=== PATIENT | female | born 1960 | race Caucasian/White ===

== ENCOUNTER 2018-05-14 17:59 | Inpatient (IN) | payer OTHER ==
[~2018-05-14] VITALS: Ht 170.2 cm; Wt 91.6 kg
[2018-05-14] MEDS ORDERED: PRILOSEC 10MG C10 MG PO (18:10)
[2018-05-14 18:43] LABS: ABSOLUTE BASOPHILS 0.1 thou/uL (0.0-0.2); ABSOLUTE EOSINOPHILS 0.2 thou/uL (0.0-0.7); ABSOLUTE LYMPHOCYTES 2.2 thou/uL (0.8-5.3); ABSOLUTE MONOCYTES 0.9 thou/uL (0.0-1.2); ABSOLUTE NEUTROPHILS 5.6 thou/uL (1.6-8.1); BASOPHILS 0.7 %; EOSINOPHILS 2.4 %; HEMATOCRIT 40.4 % (37.0-47.0); HEMOGLOBIN 13.7 gm/dL (12.0-15.0); LYMPHOCYTES 24.4 %; MCH 31.6 pg (26.0-34.0); MCHC 33.9 g/dL (28.0-37.0); MCV 93.1 fL (80.0-100.0); MONOCYTES 9.8 %; MPV 7.9 fl. (7.2-11.1); NUCLEATED RBCS 0 /100WBC; PLATELET COUNT* 329 thou/uL (150-400); POLYS 62.7 %; RBC 4.34 mil/uL (4.20-5.00)
[2018-05-14 18:59] LABS: ANION GAP < 0 mmol/L (7-16); BUN 23 mg/dL (7-18); CALCIUM 9.1 mg/dL (8.5-10.1); CHLORIDE 97 mmol/L (98-107); CO2 30 mmol/L (21-32); GLUCOSE 108 mg/dL (70-99); POTASSIUM 3.5 mmol/L (3.5-5.1); SODIUM 121 mmol/L (136-145); TROPONIN-I LEVEL <0.06 ng/mL (<0.06)
[2018-05-14 19:00] LABS: ALBUMIN 3.6 g/dL (3.4-5.0); ALKALINE PHOSPHATASE 94 U/L (46-116); LIPASE 169 U/L (73-393); NT-PRO BRAIN NAT PEPTIDE 71 pg/mL (<300); SGOT 16 U/L (15-37); SGPT 18 U/L (30-65); TOTAL BILIRUBIN 0.2 mg/dL (<0.1-1.0); TOTAL PROTEIN 7.8 g/dL (6.4-8.2)
[2018-05-14 21:28] LABS: CALCIUM 9.1 mg/dL (8.5-10.1); CREATININE 0.8 mg/dL (0.6-1.3); POTASSIUM 3.8 mmol/L (3.5-5.1)
[2018-05-14 21:51] LABS: URINE BILIRUBIN NEGATIVE (Negative); URINE BLOOD TRACE (Negative); URINE CLARITY CLEAR; URINE COLOR YELLOW; URINE GLUCOSE-RANDOM NEGATIVE (Negative); URINE KETONES NEGATIVE (Negative); URINE LEUKOCYTES-REFLEX 1+ (Negative); URINE NITRITE-REFLEX NEGATIVE (Negative); URINE PROTEIN NEGATIVE (Negative); URINE SPECIFIC GRAVITY >= 1.030 (1.005-1.030); URINE UROBILINOGEN 0.2 E.U./dl (0.2-1.0)
[2018-05-14 22:15] VITALS: BP 125/74
[2018-05-14 22:21] LABS: MUCUS 4-6 Moderate strn/LPF (None Seen); SQUAMOUS >10 Many /LPF (0-3)
[2018-05-14 22:22] LABS: CASTS None Seen /LPF (None Seen); URINE RBC 0-2 Rare /HPF (0-2); URINE WBC-REFLEX 6-15 Few /HPF (0-5)
[2018-05-14 22:23] LABS: CRYSTALS None Seen /LPF (None Seen)
[2018-05-14 22:30] VITALS: BP 112/66
[2018-05-14] MEDS ORDERED: CARAFATE 1 GM TA1 G1 PO (23:04)
[2018-05-15] VITALS: BP 110/75
[2018-05-15] LABS: CREATININE 0.8 mg/dL (0.6-1.3); POTASSIUM 3.6 mmol/L (3.5-5.1)
[2018-05-15 00:06] LABS: CALCIUM 8.9 mg/dL (8.5-10.1)
[2018-05-15 04:00] VITALS: BP 111/69
--- NOTE | 2018-05-15 06:15 | NUR ---
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 VITALS WNL. SEE MAR. SEE CHARTING. HOURLY ROUNDING FOR SAFETY.
[2018-05-15 08:00] VITALS: BP 130/78
[2018-05-15 11:38] VITALS: BP 114/56
--- NOTE | 2018-05-15 12:43 | 2DMMODE ---
[place] [address] 2 D/M-MODE ECHOCARDIOGRAM Name: ENEIDA MUÑOZ Room: [address] IN [facility]#: [id number] Admission: 05/14/18 Attend Phys: Eusebio Poe MD Discharge: Date of : 64 Date of Service: 05/15/18 1243 Report #: [id number] THIS REPORT FOR: //name// APPROVED REPORT Study performed: 05/15/2018 09:57:48 EXAM: Comprehensive 2D, Doppler, and color-flow Echocardiogram Patient Location: In-Patient Room #: [facility] Status: routine BSA: 2.03 HR: 66 bpm BP: 130/78 mmHg Rhythm: NSR Other Information Study Quality: Good Indications Chest Pain 2D Dimensions IVSd: 9.30 (7-11mm) LVOT Diam: 19.58 (18-24mm) LVDd: 46.72 mm PWd: 9.71 (7-11mm) Ascending Ao: 31.96 (22-36mm) LVDs: 25.47 (25-40mm) Aortic Root: 32.22 mm Volumes Left Atrial Volume (Systole) LA ESV Index: 20.40 mL/m2 Aortic Valve AoV Peak Hector.: 1.57 m/s AO Peak Gr.: 9.87 mmHg LVOT Max P.90 mmHg AO Mean Gr.: 5.39 mmHg LVOT Mean P.45 mmHg LVOT Max V: 1.21 m/s AO V2 VTI: 32.44 cm LVOT Mean V: 0.70 m/s JOSELUIS (VTI): 2.25 cm2 LVOT V1 VTI: 24.21 cm Mitral Valve E/A Ratio: 1.03 MV Decel. Time: 211.34 ms MV E Max Hector.: 0.83 m/[place] [address] 2 D/M-MODE ECHOCARDIOGRAM Name: ENEIDA MUÑOZ Room: [address] IN [facility]#: [id number] Admission: 05/14/18 Attend Phys: Eusebio Poe MD Discharge: Date of : 64 Date of Service: 05/15/18 1243 Report #: [id number] MV PHT: 61.29 ms MVA (PHT): 3.59 cm2 TDI E/Lateral E': 4.88 E/Medial E': 8.30 Medial E' Hector.: 0.10 m/s Lateral E' Hector.: 0.17 m/s Pulmonary Valve PV Peak Hector.: 1.00 m/s PV Peak Gr.: 4.02 mmHg Tricuspid Valve RAP Estimate: 5.00 mmHg TR Peak Gr.: 20.01 mmHg RVSP: 25.00 mmHg PA Pressure: 25.00 mmHg Left Ventricle The left ventricle is normal size. There is normal LV segmental wall motion. There is normal left ventricular wall thickness. Left ventricular systolic function is normal. The left ventricular ejection fraction is within the normal range. LVEF is 55-60%. The left ventricular diastolic function is normal. Right Ventricle The right ventricle is normal size. The right ventricular systolic function is normal. Atria The left atrium size is normal. The right atrium size is normal. Aortic Valve The aortic valve is normal in structure. No aortic regurgitation is present. There is no aortic valvular stenosis. Mitral Valve The mitral valve is normal in structure. Trace mitral regurgitation. No evidence of mitral valve stenosis. Tricuspid Valve The tricuspid valve is normal in structure. Trace tricuspid regurgitation. No pulmonary hypertension. Pulmonic Valve The pulmonary valve is normal in structure. There is no [place] [address] 2 D/M-MODE ECHOCARDIOGRAM Name: ENEIDA MUÑOZ Room: [address]#: [id number] Admission: 05/14/18 Attend Phys: Eusebio Poe MD Discharge: Date of : 64 Date of Service: 05/15/18 1243 Report #: [id number] Great Vessels The aortic root is normal in size. IVC is normal in size and collapses >50% with inspiration. Pericardium There is no pericardial effusion. <Conclusion> The left ventricle is normal size. There is normal left ventricular wall thickness. Left ventricular systolic function is normal. The left ventricular ejection fraction is within the normal range. LVEF is 55-60%. The left ventricular diastolic function is normal. The right ventricle is normal size. The left atrium size is normal. The aortic valve is normal in structure. The mitral valve is normal in structure. Trace mitral regurgitation. The tricuspid valve is normal in structure. IVC is normal in size and collapses >50% with inspiration. There is no pericardial effusion. There is normal LV segmental wall motion. <ELECTRONICALLY SIGNED> By: Mat Cross MD, FACC 05/15/18 1243 1243 1243 Mat Cross MD, FACC /INF
--- NOTE | 2018-05-15 12:53 | EKG ---
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
--- NOTE | 2018-05-15 12:59 | EKG ---
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
[2018-05-15 16:53] VITALS: BP 114/56
--- NOTE | 2018-05-15 17:02 | CARDNUC ---
[place] [address] CARDIAC NUCLEAR IMAGING REPORT Name: ENEIDA MUÑOZ Room: [address]#: [id number] Admission: 05/14/18 Attend Phys: Eusebio Poe MD Discharge: Date of : 64 Date of Service: 05/15/18 1702 Report #: [id number] THIS REPORT FOR: //name// APPROVED REPORT Imaging Protocol: Rest Tc-99m/Stress Tc-99m 1 day Study performed: 05/15/2018 11:21:00 Indication: Chest pain, Dyspnea. Patient Location: In-Patient Room #: [facility] Stress Tech: Priscila Andino Stress Nurse: Maria Teresa Van RN [place] Tech:OFELIA Sales Ht: 5 ft 7 in Wt: 202 lbs BSA: 2.03 m2 BMI: 31.63 Medical History Medical History: Angina, No history of CAD, SOB. Medications: None Allergies: Amoxicillin. Cardiac Risk Factors: Age, SOB. Previous Cardiac Procedures: None Pretest Chest Pain Characteristics: None Exercise History: Physically active Physical Disabilities: None Meds Held (24 hrs): None Resting Data Rest SPECT myocardial perfusion imaging was performed in supine position 30 minutes following the intravenous injection of 11.0 mCi of Tc-99m Sestamibi. Time of rest injection: 1405 Date: 05/15/2018 Time of rest imagin The images were gated to evaluate regional wall motion and calculate left ventricular ejection fraction. Administration Route: IV Administration Site: Left AC Exercise Stress At peak stress, the patient was injected intravenously with 36.0mCi of Tc-99m Sestamibi. Time of stress injection: 1545 [place] [address] CARDIAC NUCLEAR IMAGING REPORT Name: ENEIDA MUÑOZ Room: [address]#: [id number] Admission: 05/14/18 Attend Phys: Eusebio Poe MD Discharge: Date of : 64 Date of Service: 05/15/18 1702 Report #: [id number] Administration Route: IV Administration Site: Left AC Gated Stress SPECT was performed 30 minutes after stress injection. The images were gated to evaluate regional wall motion and calculate left ventricular ejection fraction. Prone imaging was performed. Stress Test Details Stress Test: Exercise stress testing was performed using a Gio protocol. HR Max Heart Rate (APMHR): 164 bpm Resting HR: 72 bpm Target HR (85% APMHR): 139 bpm Max HR Achieved: 160 bpm % of APMHR: 97 Recovery HR: 91 bpm BP Resting BP: 143/88 mmHg Max BP: 214/88 mmHg Recovery BP: 146/92 mmHg ECG Resting ECG: Sinus Rhythm Stress ECG: Sinus Tachycardia ST Change: None Arrhythmia: None Recovery ECG: Sinus Rhythm Recovery ST Change: None Recovery Arrhythmia: None Clinical Reason for Termination: Completed protocol, Maximal effort, Target HR achieved. Stress Symptoms: Dyspnea, Dizziness, Fatigue, Leg Fatigue, Lightheaded. Exercise duration: 7 min 09 sec Exercise capacity: 8.83 METs Overall Exercise Capacity for Age: Normal The patient tolerated standard Gio protocol exercise without significant chest pain. Nurse Comments 58 year old female inpatient presented c/o severe headache and recent HX of CP and SOA. Floor nurse contacted for pain medication. Patient agreed to Gio Protocol Stress Test. [place] [address] CARDIAC NUCLEAR IMAGING REPORT Name: ENEIDA MUÑOZ Room: [address]#: [id number] Admission: 05/14/18 Attend Phys: Eusebio Poe MD Discharge: Date of : 64 Date of Service: 05/15/18 1702 Report #: [id number] Protocol well and achieved a target HR. Recovery unremarkable. Patient escorted by staff to Nuclear Medicine for images. Patient stable with no complaints at that time, patient stated she felt better and headache was gone. Stress ECG Conclusion The baseline 12-lead EKG shows sinus rhythm with no significant ST or T wave abnormalities. EKGs obtained during and post exercise showed sinus rhythm and sinus tachycardia with no significant ST or T wave changes when compared to baseline. There were no significant stress-induced arrhythmias. Study Quality Study: Good Artifact: No artifact Study Data At rest, the left ventricular ejection fraction was 82%.. Post stress, the left ventricular ejection was 76%.. TID = 1.02. Perfusion Normal left ventricular perfusion. Wall Motion Normal left ventricular wall motion. Nuclear Conclusion ECG Findings: negative for ischemia Clinical Findings: negative for ischemia Nuclear Findings: negative for ischemia Exercise Capacity: normal Left Ventricular Function: normal Risk Study: low Myocardial perfusion images show uniform uptake of the radioisotope throughout the myocardium without defect. Left ventricular systolic function is normal on gated studies. This is a low risk stress test. <Conclusion> The baseline 12-lead EKG shows sinus rhythm with no significant ST or T wave abnormalities. EKGs obtained during and post exercise showed sinus rhythm and sinus tachycardia with no significant ST [place] [address] CARDIAC NUCLEAR IMAGING REPORT Name: ENEIDA MUÑOZ Room: [address]#: [id number] Admission: 05/14/18 Attend Phys: Eusebio Poe MD Discharge: Date of : 64 Date of Service: 05/15/181701 Report #: [id number] changes when compared to baseline. There were no significant stress-induced arrhythmias. <ELECTRONICALLY SIGNED> By: Jaydon Linton MD, [facility] 05/15/181701 01 01 Jaydon Linton MD, FACC /INF
--- NOTE | 2018-05-15 18:47 | NUR ---
order received to discharge [place] to self care. med rec, medication education, stroke education, and need for follow up with primary doctor covered and sated as understood by [place]. hourly rounding completd for patient safety. discharge time of 18:00.
--- NOTE | 2018-05-16 08:26 | CON ---
[address] [address] CONSULTATION Name: ENEIDA MUÑOZ Room: [address]#: [id number] Admission: 05/14/18 Attend Phys: Eusebio Poe MD Discharge: 05/15/18 Date of : 64 Report #: [id number] THIS REPORT FOR: //name// CC: Mat Poe INDICATION: Chest pain. HISTORY OF PRESENT ILLNESS: The patient is a 58-year-old white female with no prior cardiac history. She states she has been having midsternal chest discomfort radiating to the back Monday through Monday off and on. The pain did not radiate to the arms or neck. There was no associated shortness of breath, diaphoresis or nausea. The patient is presently pain free. She denies any history of hypertension. She does not have a history of hyperlipidemia. She denies family history of coronary artery disease. She is a lifelong nonsmoker. A 12-lead EKG was unremarkable. Cardiac enzymes thus far have been unremarkable. PAST MEDICAL HISTORY: GERD. ALLERGIES: AMOXICILLIN. CURRENT MEDICATIONS: Prilosec. SOCIAL HISTORY: The patient is . She does not smoke. She does not drink alcohol. FAMILY HISTORY: Noncontributory. REVIEW OF SYSTEMS: A 14-point review of systems positive for remote history of syncope years ago, some ankle edema, seasonal and medical allergies as outlined above. She wears glasses. She has cataracts. Otherwise, 14-point review of systems was unremarkable. PHYSICAL EXAMINATION: VITAL SIGNS: Stable. Blood pressure is 130/78, pulse is 70 and regular. GENERAL: This is a pleasant, healthy-appearing female who is in no distress. Mood and affect appropriate. HEENT: The patient is wearing glasses. Extraocular muscles intact. Mucous membranes are moist. NECK: Shows no jugular venous distention. There are no carotid bruits. CHEST: Reveals clear lung laws without wheezes, rales or rhonchi. CARDIOVASCULAR: Reveals regular rhythm with normal S1 and S2. I do not appreciate gallop or murmur. ABDOMEN: Reveals normal bowel sounds. The abdomen is soft and nontender. EXTREMITIES: Shows no edema. Peripheral pulses 2+ and easily palpable. SKIN: [place] [address] CONSULTATION Name: ENEIDA MUÑOZ Kamini Room: [address]#: [id number] Admission: 05/14/18 Attend Phys: Eusebio Poe MD Discharge: 05/15/18 Date of : 64 Report #: [id number] IMPRESSION AND RECOMMENDATIONS: 1. Chest discomfort with some features that could suggest angina. We will proceed with noninvasive stress testing at this time. Further intervention will be pending the results of that study. 2. Gastroesophageal reflux disease. Continue with Prilosec. Would recommend p.r.n. bicarbonate. If the pain persists, consider gastroenterological evaluation. <ELECTRONICALLY SIGNED> By: Jaydon Linton MD, FACC 05/16/18 0826 1123 2315Michael Virginie Linton MD, FACC /nt
== END 2018-05-15 17:39 | disposition home or self-care (01) | DRG 392 ==
LOC: M.ERS 17:59 → M.2W 20:26 → M.TBA-ER 20:26 → M.2W 22:46
PROVIDERS: Nurse Practitioner Family; ADMIT Family Medicine
DX: K21.9 Gastro-esophageal reflux disease without esophagitis (principal); E87.1 Hypo-osmolality and hyponatremia; Z79.899 Other long term (current) drug therapy; Z88.1 Allergy status to other antibiotic agents